=== PATIENT | female | born 1980 | race Caucasian/White ===

== ENCOUNTER 2022-08-06 11:09 | Emergency (ER) | payer MEDICAID ==
[~2022-08-06] VITALS: Ht 160 cm; Wt 93.9 kg
[2022-08-06 11:13] VITALS: BP 150/85
[2022-08-06] MEDS ORDERED: CYCLOBENZAPRINE 10 MG (FLEXERIL) TAB PO STA (11:31)
[2022-08-06] MEDS ORDERED: CYCL10TA25 PO ×2 (11:37→11:38)
--- NOTE | 2022-08-06 11:37 | ED Upper Extremity ---
General Chief Complaint: Upper Extremity Stated Complaint: CLAVICLE/CERVICAL PAIN Nursing Triage Note: Patient reports left clavicular pain for 3 weeks. She states her son tried to "adjust" her arm and she has had severe pain since that time. She states she saw Tawanda Dillon APRN today, and had a negative x-ray. She states Tawanda Dillon recommended an MRI, but that her pain is too severe to tolerate any longer. Source: patient Exam Limitations: no limitations History of Present Illness Date Seen by Provider: Aug 06, 2022 Time Seen by Provider: 11:10 Initial Comments 41-year-old female with past medical history of fibromyalgia and complex regional pain syndrome coming in due to 3 weeks of left clavicle pain. She states she had an issue happen in nursing home over a month ago. She tried to have her son "adjusted her arm". And has had severe pain since then. She saw Tawanda Dillon APRN orthopedist today, and has had a negative x-rays of her neck, clavicle, and left shoulder. Left clavicle x-ray done today. Tawanda Dillon recommended an MRI, and has ordered this. She is that she is having to severe pain. She is taking ibuprofen intermittently, last took it more than 6 hours ago. She states she needs something "really strong". Allergies and Home Medications Allergies Coded Allergies: bupropion (Verified Allergy, Unknown, 08/06/22) ketamine (Verified Allergy, Unknown, 08/06/22) paroxetine (Verified Allergy, Unknown, 08/06/22) Patient Home Medication List Home Medication List Reviewed: Yes Cetirizine HCl (Zyrtec) 10 Mg Tablet, 10 MG PO DAILY Prescribed by: DARYL SOMMER on 08/06/22 1140 Cyclobenzaprine HCl (Cyclobenzaprine HCl) 10 Mg Tablet, 10 MG PO TID Prescribed by: DARYL SOMMER on 08/06/22 1138 Lidocaine (Lidocaine 5% Patch) 5 % Adh..patch, 1 EACH TP Q12H PRN for Ne uropathic pain Prescribed by: DARYL SOMMER on 08/06/22 1140 Review of Systems Constitutional: No fever EENTM: no symptoms reported Respiratory: no symptoms reported Cardiovascular: no symptoms reported Gastrointestinal: no symptoms reported Genitourinary: no symptoms reported Musculoskeletal: see HPI Skin: no symptoms reported Psychiatric/Neurological: No Symptoms Reported Past Dhuduhv-Pnxuwv-Wmytkv Hx Patient Social History Tobacco Use?: Yes Tobacco type used: Cigarettes Smoking Status: Current Everyday Smoker Substance use?: No Alcohol Use?: No Pt feels they are or have been: No Past Medical History Surgery/Hospitalization HX: HTN, Chronic regional pain syndrome Physical Exam Vital Signs Vital Signs - First Documented 08/06/22 11:13 Temp 36.1 Pulse 108 Resp 16 B/P (MAP) 150/85 (106) Pulse Ox 100 O2 Delivery Room Air Capillary Refill : Less Than 3 Seconds Height, Weight, BMI Height: '" Weight: lbs. oz. kg; 36.00 BMI Method: General Appearance: WD/WN, no apparent distress HEENT: PERRL/EOMI, normal ENT inspection, pharynx normal Neck: non-tender, full range of motion, supple, normal inspection Cardiovascular: regular rate, rhythm, no edema, no murmur Respiratory: chest non-tender, lungs clear, normal breath sounds, no respiratory distress, no accessory muscle use Gastrointestinal: normal bowel sounds, non tender, soft Back: normal inspection, no CVA tenderness, no vertebral tenderness Shoulder: no evidence of injury, normal ROM, pain (Pain even to light touch over the clavicle, skin has been rubbed raw from where the patient is actively rubbing it constantly, normal range of motion of shoulder actively and passively, 5 out of 5 strength with shoulder abduction, normal rotator cuff strength, normal distal sensation and capillary refill, normal nerve exam including specific testing of the radial, median, ulnar nerves.) Neurologic/Tendon: normal sensation, normal motor functions, normal tendon functions Neurologic/Psychiatric: no motor/sensory deficits, alert, normal mood/affect Skin: normal color, warm/dry Lymphatic: no adenopathy Progress/Results/Core Measures Results/Orders My Orders Orders - DARYL SOMMER MD Ketorolac Injection (Toradol Injection) (08/06/22 11:45) Cyclobenzaprine Tablet (Flexeril Tablet) (08/06/22 11:31) Acetaminophen Tablet (Tylenol Tablet) (08/06/22 11:45) Medications Given in ED Current Medications Medications Dose Ordered Sig/Daily Route Start Time Stop Time Status Last Admin Dose Admin Acetaminophen 1,000 mg ONCE ONCE PO 08/06/22 11:45 08/06/22 11:42 DC 08/06/22 11:40 1,000 MG Ketorolac Tromethamine 15 mg ONCE ONCE IM 08/06/22 11:45 08/06/22 11:42 DC 08/06/22 11:40 15 MG Vital Signs/I&O 08/06/22 11:13 Temp 36.1 Pulse 108 Resp 16 B/P (MAP) 150/85 (106) Pulse Ox 100 O2 Delivery Room Air Blood Pressure Mean: 106 Progress Progress Note : Progress Note 41-year-old female coming in due to superficial left clavicle pain. ABCs were intact and vitals were stable on presentation. Physical exam with very sensitive skin over the clavicle where she has rubbed raw. Wound care was done here with a barrier cream followed by a nonadhesive pad. Patient very sensitive to the touch, symptoms somewhat consistent with chronic regional pain syndrome. I reviewed the x-ray and on my interpretation of her clavicle done earlier today there is no fracture or dislocation. Offered IM Toradol, patient states it no longer works for her because she had some much of it in the past. I discussed with the patient that is not physiologically how getting Toradol works. She was agreeable to getting it. Also gave her oral Flexeril and Tylenol. Pain is subacute to chronic in nature at this point, nothing acute on my exam noted that is concerning. Follow-up as an outpatient with orthopedics that she already has is appropriate. She has an MRI pending. I discussed that she likely needs physical therapy as well. She was then discharged home in stable condition with strict return precautions Departure Impression Primary Impression: Pain of left clavicle Disposition: 01 HOME, SELF-CARE Condition: Stable Departure-Patient Inst. Decision time for Depature: 11:36 Referrals: NO,LOCAL PHYSICIAN (PCP/Family) Primary Care Physician Patient Instructions: Acute Pain, Adult Add. Discharge Instructions: Although you are in a lot of pain, there is nothing life-threatening or limb threatening we are seeing on exam or your images that you had that we reviewed. With issues like this, it is best to have consistent follow-up as an outpatient with the same provider. Please follow-up with Tawanda Dillon who has been seeing you. Please follow-up on the MRI that they are trying to order. We suggest physical therapy for not only muscle strengthening, but they can also do other modalities such as massage. Try to keep yourself from rubbing the area raw, and try to keep it covered. Use the lidocaine patch after your skin is healed over. Don't put the patch on scabbed over or broken skin. Scripts Cetirizine HCl (Zyrtec) 10 Mg Tablet 10 MG PO DAILY for 30 Days, #30 TAB Prov: DARYL SOMMER MD 08/06/22 Lidocaine (Lidocaine 5% Patch) 5 % Adh..patch 1 EACH TP Q12H PRN for Neuropathic pain MDD 2 for 14 Days, #28 PATCH 2 patches max for 12 hours, then 12 hours patch-free period. Prov: DARYL SOMMER MD 08/06/22 Cyclobenzaprine HCl (Cyclobenzaprine HCl) 10 Mg Tablet 10 MG PO TID for 5 Days, #15 TAB Prov: DARYL SOMMER MD 08/06/22 Work/School Note: Work Release Form Date Seen in the Emergency Department: Aug 06, 2022 Return to Work: Aug 07, 2022 Restrictions: No Restrictions DARYL SOMMER MD Aug 06, 2022 11:37
[2022-08-06] MEDS ORDERED: LIDO700A45 TP (11:40)
[2022-08-06] MEDS ORDERED: CETI10TA49 PO (11:40)
[2022-08-06] MEDS ORDERED: ACETAMINOPHEN 500 MG TAB (TYLENOL) PO ONE (11:45)
[2022-08-06] MEDS ORDERED: KETOROLAC 15 MG/ML VIAL IM ONE (11:45)
== END 2022-08-06 11:42 | disposition home or self-care (01) ==
LOC: EDUNIT# 11:09 → ER FS 11:10
DX: M54.2 Cervicalgia (principal); F17.210 Nicotine dependence, cigarettes, uncomplicated; Z28.310 Unvaccinated for COVID-19

== ENCOUNTER → 2022-08-06 | Outpatient (CLI) | payer MEDICAID ==
[~2022-08-06] MED LIST: CETI10TA49 PO; CYCL10TA25 PO; LIDO700A45 TP
--- NOTE | 2022-08-06 13:28 | Diagnostic Imaging Report ---
EXAMINATION: Left clavicle radiographs, 2 views. COMPARISON: None. HISTORY: 41-year-old female, left clavicle pain. FINDINGS: The acromioclavicular joint is normally aligned. There are no prominent acromioclavicular degenerative changes. There is no identified acute fracture. The humeral head is not obviously dislocated. IMPRESSION: 1. No acute bony abnormality of the left clavicle. 2. Intact acromioclavicular joint. Dictated by: Dictated on workstation # [id number]
== END ==
LOC: RAD FS 10:23
PROVIDERS: ATTEND Nurse Practitioner
DX: M25.512 Pain in left shoulder (principal); M54.2 Cervicalgia
CPT/HCPCS: 73000